=== PATIENT | female | born 1970 | race Caucasian/White ===

== ENCOUNTER 2018-03-08 13:14 | Emergency (ER) | payer OTHER ==
[~2018-03-08] VITALS: Ht 165.1 cm; Wt 131.5 kg
[~2018-03-08 13:14] MED LIST: COZAAR25 MG; COZAAR50 MG PO; VISTARIL25 MG PO
[2018-03-08] MEDS ORDERED: COZAAR100 MG (13:29)
== END 2018-03-08 18:25 | disposition home or self-care (01) ==
LOC: ER 13:14
DX: M54.5 Low back pain (principal)

== ENCOUNTER 2019-01-22 10:07 | Outpatient (CLI) | payer OTHER ==
[~2019-01-22 10:07] MED LIST changes: +COZAAR100 MG
== END 2019-01-22 10:25 | disposition home or self-care (01) ==
LOC: NUCLEAR 10:07
DX: I25.89 Other forms of chronic ischemic heart disease (principal)
CPT/HCPCS: 78452; 93017; A9500; J0153

== ENCOUNTER 2019-01-30 15:53 | Emergency (ER) | payer OTHER ==
[~2019-01-30] VITALS: Ht 165.1 cm; Wt 85.7 kg
[2019-01-30] MEDS ORDERED: CELEBREX200MG PO (16:05)
[2019-01-30] MEDS ORDERED: CARDURA1 MG PO (16:05)
== END 2019-01-30 18:25 | disposition home or self-care (01) ==
LOC: ER 15:53
DX: T65.891A Toxic effect of other specified substances, accidental (unintentional), initial encounter (principal); J68.8 Other respiratory conditions due to chemicals, gases, fumes and vapors; Y92.89 Other specified places as the place of occurrence of the external cause

== ENCOUNTER 2019-12-10 16:35 | Emergency (ER) | payer OTHER ==
[~2019-12-10] VITALS: Ht 165.1 cm; Wt 108.9 kg
[~2019-12-10 16:35] MED LIST changes: +CARDURA1 MG PO; +CELEBREX200MG PO
[2019-12-10] MEDS ORDERED: ASPIR 8181 MG (16:47)
[2019-12-10] MEDS ORDERED: VERELAN PM100 MG (16:47)
[2019-12-10] MEDS ORDERED: ORPHENADRINE C100 MG (16:48)
== END 2019-12-10 20:50 | disposition home or self-care (01) ==
LOC: ER 16:35
DX: M10.071 Idiopathic gout, right ankle and foot (principal)

== ENCOUNTER 2021-01-18 14:27 | Outpatient (CLI) | payer OTHER ==
[~2021-01-18 14:27] MED LIST changes: +ASPIR 8181 MG; +ORPHENADRINE C100 MG; +VERELAN PM100 MG
== END 2021-01-18 14:36 | disposition home or self-care (01) ==
LOC: RAD 14:27
PROVIDERS: ATTEND Internal Medicine
DX: M54.5 Low back pain (principal)

== ENCOUNTER 2021-11-04 10:32 | Emergency (ER) | payer OTHER ==
[~2021-11-04] VITALS: Ht 165.1 cm; Wt 116.1 kg
[2021-11-04] MEDS ORDERED: CARDIZEM30 MG (10:56)
[2021-11-04] MEDS ORDERED: LYRICA100 MG (10:56)
== END 2021-11-04 12:44 | disposition home or self-care (01) ==
LOC: ER 10:32
DX: K52.9 Noninfective gastroenteritis and colitis, unspecified (principal); Z20.822 Contact with and (suspected) exposure to COVID-19

== ENCOUNTER 2022-07-23 18:19 | Emergency (ER) | payer OTHER ==
[~2022-07-23] VITALS: Ht 165.1 cm; Wt 117.9 kg
[~2022-07-23 18:19] MED LIST changes: +CARDIZEM30 MG; +LYRICA100 MG
[2022-07-23] MEDS ORDERED: FOLIC ACID20 MG PO (19:02)
[2022-07-23] MEDS ORDERED: RELAFEN DS1000 MG PO (19:02)
[2022-07-23] MEDS ORDERED: B12 ACTIVE1000 MCG PO (19:03)
[2022-07-23] MEDS ORDERED: D3 + K2 DOTS 11 EACH PO (19:03)
[2022-07-23] MEDS ORDERED: CIPROFLOXACIN HC5 ML OP (20:53)
== END 2022-07-23 22:28 | disposition home or self-care (01) ==
LOC: ER 18:19
DX: M54.2 Cervicalgia (principal)

== ENCOUNTER 2023-04-24 18:13 | Emergency (ER) | payer OTHER ==
[~2023-04-24] VITALS: Ht 165.1 cm; Wt 127.0 kg
[~2023-04-24 18:13] MED LIST changes: +B12 ACTIVE1000 MCG PO; +CIPROFLOXACIN HC5 ML OP; +D3 + K2 DOTS 11 EACH PO; +FOLIC ACID20 MG PO; +RELAFEN DS1000 MG PO
== END 2023-04-24 21:50 | disposition home or self-care (01) ==
LOC: ER 18:13
PROVIDERS: General Practice
DX: H60.8X1 Other otitis externa, right ear (principal)

== ENCOUNTER 2025-05-11 16:19 | Emergency (ER) | payer OTHER ==
[~2025-05-11] VITALS: Ht 165.1 cm; Wt 131.5 kg
[~2025-05-11 16:19] MED LIST changes: +CYCLOBENZAPRINE10 MG PO; +CYCLOBENZAPRINE5 MG PO; +KETO10TA2 PO; +KETOROLAC30 MG/1 ML IM; +NABUMETONE750 MG PO
[2025-05-11] MEDS ORDERED: LYRICA20 MG/1 ML PO (16:30)
[2025-05-11] MEDS ORDERED: TOPAMAX25 MG PO (16:30)
[2025-05-11] MEDS ORDERED: PLAVIX75 MG PO (16:31)
[2025-05-11] MEDS ORDERED: KETOROLAC TROMETHAMINE 30 MG VIAL IV ONE (17:00)
[2025-05-11] MEDS ORDERED: ONDANSETRON HCL 2 MG/ML VIAL IV ONE (17:00)
[2025-05-11] MEDS ORDERED: FAMOTIDINE/PF 20 MG/2 ML VIAL IV ONE (17:00)
[2025-05-11] MEDS ORDERED: 0.9 % SODIUM CHLORIDE 1,000 ML IV STA (17:02)
[2025-05-11] MEDS ORDERED: ONDANSETRON HCL 2 MG/ML VIAL ONE (17:22)
[2025-05-11] MEDS ORDERED: KETOROLAC TROMETHAMINE 30 MG VIAL ONE (17:22)
[2025-05-11] MEDS ORDERED: FAMOTIDINE/PF 20 MG/2 ML VIAL ONE (17:23)
[2025-05-11 18:07] LABS: BASO % 0.8 % (0.1-1.2); EOS # 0.27 (0.04-0.54); EOS % 3.5 % (0.7-7.0); LYMPH # 1.86 (1.18-3.74); LYMPH % 23.9 % (19.3-53.1); MEAN PLATELET VOLUME 11.80 fl (9.4-12.4); MONO # 0.80 (0.24-0.82); MONO % 10.3 % (4.7-12.5); NEUT # 4.78 (1.56-6.13); NEUT % 61.2 % (34.0-71.1); RED CELL DISTRIBUTION WIDTH 14.2 % (11.6-14.4)
[2025-05-11 19:01] LABS: ALT/SGPT 22.0 U/L (12-78); AST/SGOT 14.0 U/L (15-37); BILIRUBIN TOTAL 0.5 mg/dL (0.3-1.2); BUN CREA RATIO 29.0 (7.0-25.0); CREATININE SERUM 0.92 mg/dL (0.55-1.02); GFR 63.38; GLOBULINA 3.8 G/DL (2.4-3.5); GLUCOSE FASTING 93.0 mg/dL (65-100); OSMOLALITY SERUM 292.0 MOSM/KG (275-295)
[2025-05-11] MEDS ORDERED: INTESTINEX680 M1 PO (21:03)
[2025-05-11] MEDS ORDERED: ZOFRAN8 MG PO (21:03)
[2025-05-11] MEDS ORDERED: PEPCID AC20 MG PO (21:03)
== END 2025-05-11 21:29 | disposition home or self-care (01) ==
LOC: ER 16:19
PROVIDERS: General Practice
DX: A05.9 Bacterial foodborne intoxication, unspecified (principal); G47.33 Obstructive sleep apnea (adult) (pediatric); I25.10 Atherosclerotic heart disease of native coronary artery without angina pectoris